=== PATIENT | male | born 1975 | race Two or more races ===

== ENCOUNTER 2022-05-01 15:14 | Emergency (ER) | payer MEDICAID, OTHER ==
[~2022-05-01] VITALS: Ht 177.8 cm; Wt 66.0 kg
[2022-05-01 15:20] VITALS: BP 101/71
[2022-05-01] MEDS: SODIUM CHLORIDE 0.9% 1,000 ML IV ONE ×4 (16:30→16:55)
[2022-05-01 17:30] LABS: BASOPHILS % 0.6 % (0.0-2.0); HEMATOCRIT. 48.7 % (42.0-52.0); HEMOGLOBIN. 16.3 g/dL (14.0-18.0); LYMPHOCYTES % 16.5 % (20.0-50.0); MEAN CORPUSCULAR HEMOGLOBIN 30.8 pg (28.0-32.0); MEAN CORPUSCULAR VOLUME 92.3 fL (80.0-94.0); MEAN PLATELET VOLUME 8.5 fl (7.4-10.4); MONOCYTES % 7.3 % (2.0-8.0); NEUTROPHILS % 74.6 % (40.0-76.0); PLATELET 346 x1000/uL (130-400); RED BLOOD CELL COUNT 5.28 mill/uL (4.7-6.1); RED CELL DISTRIBUTION WIDTH 14.6 % (11.6-14.6)
[2022-05-01 17:40] LABS: CHLORIDE 105 mEq/L (98-107)
[2022-05-01 17:50] LABS: ETHANOL BLOOD < 10 mg/dL
[2022-05-01 18:13] LABS: *AMPHETAMINES SCREEN URINE PRESUMTIVE POSITIVE (NEGATIVE); *BARBITURATES SCREEN URINE NEGATIVE (NEGATIVE); *BENZODIAZEPINES SCREEN URINE NEGATIVE (NEGATIVE); *COCAINE SCREEN URINE NEGATIVE (NEGATIVE); CANNABINOID URINE SCREEN PRESUMTIVE POSITIVE (NEGATIVE); METHADONE URINE SCREEN NEGATIVE (NEGATIVE); OPIATES URINE SCREEN NEGATIVE (NEGATIVE); PHENCYCLIDINE URINE SCREEN NEGATIVE (NEGATIVE)
== END 2022-05-01 18:47 | disposition home or self-care (01) ==
LOC: ER 15:14
DX: R00.0 Tachycardia, unspecified (principal); E86.0 Dehydration; R42 Dizziness and giddiness; F15.129 Other stimulant abuse with intoxication, unspecified
CPT/HCPCS: 36415; 71045; 80053; 80305; 80320; 83735; 83880; 84484; 85025; 93005; 99285; J7030; Z7610; G0480